=== PATIENT | male | born 1970 | race Caucasian/White ===

== ENCOUNTER 2020-03-31 08:57 | Outpatient (CLI) | payer OTHER, SELFPAY ==
[2020-03-31 10:01] LABS: SARS-CoV-2 Ag Negative (Negative)
== END 2020-03-31 08:58 | disposition home or self-care (01) ==
PROVIDERS: PCP Internal Medicine; Visit Provider Internal Medicine
DX: Z20.828 Contact with and (suspected) exposure to other viral communicable diseases (principal)
CPT/HCPCS: 87426

== ENCOUNTER → 2020-09-16 15:12 | Outpatient (REF) | payer OTHER, SELFPAY | LOC: ANHLAB 15:12 | PROVIDERS: PCP Internal Medicine; Visit Provider Nurse Practitioner | DX: D17.0 Benign lipomatous neoplasm of skin and subcutaneous tissue of head, face and neck (principal); R22.0 Localized swelling, mass and lump, head | CPT/HCPCS: 88304 ==